=== PATIENT | female | born 1955 | race Two or more races ===

== ENCOUNTER 2018-12-17 18:22 | Emergency (ER) | payer OTHER ==
[~2018-12-17] VITALS: Ht 167.6 cm; Wt 79.4 kg
[2018-12-17] MEDS ORDERED: COZAAR50 MG (20:06)
[2018-12-17] MEDS ORDERED: ASA81 MG (20:07)
[2018-12-17] MEDS ORDERED: ATIVAN0.5 M1 PO (21:06)
== END 2018-12-17 21:15 | disposition home or self-care (01) ==
LOC: ER 18:22
DX: I16.0 Hypertensive urgency (principal); I10 Essential (primary) hypertension